=== PATIENT | male | born 1990 | race American Indian/Alaskan Native ===

== ENCOUNTER 2017-11-16 09:38 | Emergency (ER) | payer OTHER ==
[2017-11-16 10:22] VITALS: BP 132/71
--- NOTE | 2017-11-16 10:53 | Emergency Department Report ---
Minor Respiratory - HPI Chief Complaint: Sore Throat Stated Complaint: SORE THROAT Time Seen by Provider: 11/16/17 10:44 Duration: 1 Day Pain Location: Throat Severity: mild Minor Respiratory: Yes Sore Throat, Yes Able to Tolerate Fluids, No Rhinorrhea, No Ear Pain, No Cough, No Sick Contacts, No Hemoptysis, No Chest Pain, No Shortness of Breath, No Fever ED Review of Systems ROS: Stated complaint: SORE THROAT Other details as noted in HPI Comment: All other systems reviewed and negative ENT: throat pain ED Past Medical Hx - Past Medical History Previous Medical History?: No - Surgical History Past Surgical History?: No - Social History Smoking Status: Current Every Day Smoker Substance Use Type: None - Medications Home Medications: Home Medications Medication Instructions Recorded Confirmed Last Taken Type Amoxicillin 500 mg PO BID #20 capsule 11/16/17 Unknown Rx methylPREDNISolone [Medrol] 4 mg PO DAILY #1 tab.ds.pk 11/16/17 Unknown Rx Minor Respiratory Exam - Exam General: Vital signs noted. No distress. Alert and acting appropriately. HEENT: Yes Pharyngeal Erythema, Yes Moist Mucous Membranes, No Pharyngeal Exudates, No Rhinorrhea, No Conjuctival Injection, No Frontal Tenderness, No Maxillary Tenderness Ear: Neither TM Bulge, Neither TM Erythema, Neither EAC Pain, Neither EAC Discharge Neck: Yes Supple, No Adenopathy Lungs: Yes Good Air Exchange, No Wheezes, No Ronchi, No Stridor, No Cough, No Labored Respirations, No Retractions, No Use of Accessory Muscles, No Other Abnormal Lung Sounds Heart: Yes Regular, No Murmur Abdomen: Yes Normal Bowel Sounds, No Tenderness, No Peritoneal Signs Skin: No Rash, No Edema Neurologic: Alert and oriented, no deficits. Musculoskeletal: Unremarkable. ED Course Vital Signs 11/16/17 10:21 Temperature 98.6 F Pulse Rate 78 Respiratory 18 Rate Blood Pressure 132/71 O2 Sat by Pulse 100 Oximetry - Reevaluation(s) Reevaluation #1: 11/16/17 11:13 VSS NAD AMBULATORY TAKING PO NO HOARSENESS CC SORE THROAT UVULA BOGGY RED NO EXUDATES NO FEVER MEDICATED DC HOME W DC POC ED Medical Decision Making - Medical Decision Making SEE NOTE - Differential Diagnosis URTI Critical care attestation.: If time is entered above; I have spent that time in minutes in the direct care of this critically ill patient, excluding procedure time. ED Disposition Clinical Impression: Acute pharyngitis Disposition: DC-01 TO HOME OR SELFCARE Is pt being admited?: No Does the pt Need Aspirin: No Condition: Stable Instructions: Pharyngitis (ED) Additional Instructions: REST HYDRATE WELL MED ORDERED FOLLOW UP PCP IN 72 HOURS FOR RECHECK Referrals: PRIMARY CARE, [Primary Care Provider] - 3-5 Days STELLA MCCRACKEN MD [Staff Physician] - 3-5 Days Time of Disposition: 11:11
[2017-11-16] MEDS ORDERED: TRIMOX PO ONE (11:03)
[2017-11-16] MEDS ORDERED: DECADRON IM ONE (11:04)
== END 2017-11-16 11:29 | disposition home or self-care (01) ==
LOC: ED 09:38
DX: J02.9 Acute pharyngitis, unspecified (principal); F17.200 Nicotine dependence, unspecified, uncomplicated
CPT/HCPCS: 96372; 99282; J1100

== ENCOUNTER 2018-01-18 07:19 | Emergency (ER) | payer SELFPAY ==
[2018-01-18 08:05] LABS: Basophils % (Auto) 0.5 % (0.0-1.8); Eosinophils # (Auto) 0.3 K/mm3 (0.0-0.4); Eosinophils % (Auto) 3.8 % (0.0-4.3); Hematocrit 49.1 % (35.5-45.6); Hemoglobin 16.5 gm/dl (11.8-15.2); Lymphocytes # (Auto) 1.7 K/mm3 (1.2-5.4); Lymphocytes % (Auto) 24.9 % (13.4-35.0); Mean Corpuscular HGB Conc 34 % (32-34); Mean Corpuscular Hemoglobin 30 pg (28-32); Mean Corpuscular Volume 89 fl (84-94); Monocytes # (Auto) 0.5 K/mm3 (0.0-0.8); Monocytes % (Auto) 7.7 % (0.0-7.3); Platelet Count 199 K/mm3 (140-440); Red Blood Count 5.52 M/mm3 (3.65-5.03); Red Cell Distribution Width 13.8 % (13.2-15.2)
[2018-01-18 08:19] LABS: BUN/Creatinine Ratio 11; Blood Urea Nitrogen 9 mg/dL (9-20); Calcium 9.4 mg/dL (8.4-10.2); Hemolysis Index 7
[2018-01-18] MEDS ORDERED: MOTRIN PO ONE (12:08)
--- NOTE | 2018-01-18 12:17 | Emergency Department Report ---
ED Chest Pain HPI - General Chief Complaint: Chest Pain Stated Complaint: FLU LIKE SYMPTOMS Time Seen by Provider: 01/18/18 12:02 Source: patient Mode of arrival: Ambulatory Limitations: No Limitations - History of Present Illness Initial Comments: Patient is a 27-year-old Georgian male who is presenting with chest pain and sinus tenderness. Patient states woke up this morning and was having discomfort when he breathes. Patient denies any cough. Patient states that as a soreness in the upper chest and he also has soreness in the maxillary sinus region. Patient states he has difficulty breathing out of both nostrils. Patient also was nauseous this morning and vomited once. Patient denies any pleuritic component or exertional component to this chest pain. Patient's states he has had no measurable fever diarrhea abdominal pain headache sore throat at this time. - Related Data Previous Rx's Medication Instructions Recorded Last Taken Type Amoxicillin 500 mg PO BID #20 capsule 11/16/17 Unknown Rx methylPREDNISolone [Medrol] 4 mg PO DAILY #1 tab.ds.pk 11/16/17 Unknown Rx Amoxicillin/Potassium Clav 1 each PO BID #14 tablet 01/18/18 Unknown Rx [Augmentin 875-125 Tablet] Hydrochlorothiazide [HCTZ] 12.5 mg PO QDAY #30 capsule 01/18/18 Unknown Rx predniSONE [Deltasone] 20 mg PO QDAY #5 tab 01/18/18 Unknown Rx Allergies Allergy/AdvReac Type Severity Reaction Status Date / Time No Known Allergies Allergy Verified 11/16/17 10:20 Heart Score - HEART Score History: Slightly suspicious EKG: Normal Age: < 45 Risk factors: No known risk factors Troponin: < normal limit HEART Score: 0 ED Review of Systems ROS: Stated complaint: FLU LIKE SYMPTOMS Other details as noted in HPI Comment: All other systems reviewed and negative ED Past Medical Hx - Past Medical History Previous Medical History?: No - Surgical History Past Surgical History?: No - Social History Smoking Status: Current Every Day Smoker - Medications Home Medications: Home Medications Medication Instructions Recorded Confirmed Last Taken Type Amoxicillin 500 mg PO BID #20 capsule 11/16/17 Unknown Rx methylPREDNISolone [Medrol] 4 mg PO DAILY #1 tab.ds.pk 11/16/17 Unknown Rx Amoxicillin/Potassium Clav 1 each PO BID #14 tablet 01/18/18 Unknown Rx [Augmentin 875-125 Tablet] Hydrochlorothiazide [HCTZ] 12.5 mg PO QDAY #30 capsule 01/18/18 Unknown Rx predniSONE [Deltasone] 20 mg PO QDAY #5 tab 01/18/18 Unknown Rx ED Physical Exam - General Limitations: No Limitations ED Course Vital Signs 01/18/18 01/18/18 07:26 12:09 Temperature 97.9 F Pulse Rate 102 H Respiratory 16 16 Rate Blood Pressure 163/98 O2 Sat by Pulse 99 Oximetry ED Medical Decision Making - Lab Data Result diagrams: 01/18/18 07:44 01/18/18 07:44 - EKG Data -: EKG Interpreted by Me EKG shows normal: sinus rhythm, axis, intervals, QRS complexes, ST-T waves Rate: normal - EKG Data Interpretation: normal EKG - Radiology Data Radiology results: image reviewed interpreted by me: No acute process - Medical Decision Making Patient is a 27 year old male who is presenting with sinus tenderness in the maxillary sinus region. Patient's lungs are clear EKG was normal chest x-ray was read as normal as well. Pat will be discharged home with early treatment for acute sinusitis. Patient will be also started on a low-dose blood pressure medicine. Patient blood pressure was elevated hypertensive range. She states that hypertension does run in his family. Critical care attestation.: If time is entered above; I have spent that time in minutes in the direct care of this critically ill patient, excluding procedure time. ED Disposition Clinical Impression: Hypertension Qualifiers: Hypertension type: unspecified Qualified Code(s): I10 - Essential (primary) hypertension Sinusitis Qualifiers: Sinusitis location: other Chronicity: acute Recurrence: non-recurrent Qualified Code(s): J01.80 - Other acute sinusitis Disposition: DC-01 TO HOME OR SELFCARE Is pt being admited?: No Does the pt Need Aspirin: No Condition: Stable Instructions: Hypertension (ED), Sinusitis (ED) Prescriptions: Amoxicillin/Potassium Clav [Augmentin 875-125 Tablet] 1 each PO BID #14 tablet Hydrochlorothiazide [HCTZ] 12.5 mg PO QDAY #30 capsule predniSONE [Deltasone] 20 mg PO QDAY #5 tab Referrals: PRIMARY CARE, [Primary Care Provider] - 3-5 Days
--- NOTE | 2018-01-18 12:50 | XRay Report ---
ROUTINE CHEST, TWO VIEWS: HISTORY: Cough. The trachea, heart, mediastinal contour, lung cannon and bony thorax are unremarkable. IMPRESSION: Unremarkable chest x-ray.
[2018-01-18 12:53] VITALS: BP 127/80
== END 2018-01-18 12:54 | disposition home or self-care (01) ==
LOC: ED 07:19
DX: J01.80 Other acute sinusitis (principal); I10 Essential (primary) hypertension; F17.200 Nicotine dependence, unspecified, uncomplicated
CPT/HCPCS: 36415; 71046; 80048; 84484; 85025; 93005; 93010; 99284

== ENCOUNTER 2021-05-05 22:43 | Emergency (ER) | payer SELFPAY ==
[2021-05-05 23:45] VITALS: BP 122/70
[2021-05-05] MEDS ORDERED: FAMOTIDINE 20 MG TAB PO ONE (23:52)
[2021-05-05] MEDS ORDERED: ASPIRIN 325 MG TAB PO ONE (23:52)
[2021-05-05] MEDS ORDERED: ONDANSETRON 4 MG ODT TAB PO ONE (23:52)
[2021-05-05] MEDS ORDERED: ALUM-MAG HYDROXIDE-SIMETHICONE 200-200-20MG/5ML ORAL LIQD 30 ML PO ONE (23:52)
[2021-05-05] MEDS ORDERED: LIDOCAINE VISCOUS 2% 15 ML ORAL LIQD PO ONE (23:52)
--- NOTE | 2021-05-05 23:55 | Event Note ---
ED Screening Note Date of service: 05/05/21 Time: 23:54 ED Screening Note: Patient is a 30-year-old -Qat[place] male with no past medical history presents to the ED with complaint of acute onset persistent epigastric pain that radiates to the left chest and substernal area with pressure, nausea and vomiting after he swallowed a piece of meat and suspects that the food bolus may have gotten stuck in his distal esophagus. Patient states that he has tried to drink a lot of fluids but continues to have nausea and vomiting. Patient denies dizziness, syncope, shortness of breath, palpitations, sore throat, hemoptysis, hematemesis, back pain or headache. This initial assessment/diagnostic orders/clinical plan/treatment(s) is/are subject to change based on patients health status, clinical progression and re- assessment by fellow clinical providers in the ED. Further treatment and workup at subsequent clinical providers discretion. Patient/guardian urged not to elope from the ED as their condition may be serious if not clinically assessed and managed. Initial orders include: CBC, CMP, EKG, abdomen series with chest x-ray, troponin, Zofran, GI cocktail
--- NOTE | 2021-05-06 00:25 | XRay Report ---
ABDOMEN 3 VIEW(S) INDICATION / CLINICAL INFORMATION: Epigastric pain : food bolus stuck in esophagus. COMPARISON: None available. FINDINGS: TUBES / LINES: None. BOWEL GAS PATTERN: No significant abnormality. FREE AIR / EXTRALUMINAL GAS: None seen. ADDITIONAL FINDINGS: No significant additional findings. CHEST: Visualized chest shows no significant abnormality. IMPRESSION: 1. No significant abnormality. Signer Name: Andrews Garcia MD Signed: 05/06/2021 12:21 AM Workstation Name: [id number]
[2021-05-06 00:37] LABS: Basophils % (Auto) 0.1 % (0.0-1.8); Eosinophils # (Auto) 0.1 K/mm3 (0.0-0.4); Eosinophils % (Auto) 0.8 % (0.0-4.3); Hematocrit 42.6 % (35.5-45.6); Hemoglobin 14.6 gm/dl (11.8-15.2); Lymphocytes % (Auto) 17.2 % (13.4-35.0); Mean Corpuscular HGB Conc 34 % (32-34); Mean Corpuscular Volume 89 fl (84-94); Monocytes # (Auto) 0.8 K/mm3 (0.0-0.8); Monocytes % (Auto) 6.5 % (0.0-7.3); Platelet Count 214 K/mm3 (140-440); Red Blood Count 4.79 M/mm3 (3.65-5.03); Red Cell Distribution Width 13.6 % (13.2-15.2)
[2021-05-06 00:56] LABS: Alanine Aminotransferase 35 units/L (7-56); Albumin 4.5 g/dL (3.9-5); BUN/Creatinine Ratio 12; Blood Urea Nitrogen 12 mg/dL (9-20); Calcium 9.2 mg/dL (8.4-10.2); Hemolysis Index 4
--- NOTE | 2021-05-06 03:07 | Emergency Department Report ---
ED Abdominal Pain HPI - General Chief Complaint: Abdominal Pain Stated Complaint: LIZ Source: patient Mode of arrival: Ambulatory Limitations: No Limitations - History of Present Illness Initial Comments: Patient is a 30-year-old -Uz[place] male with no past medical history presents to the ED with complaint of acute onset persistent epigastric pain that radiates to the left chest and substernal area with pressure, nausea and vomiting after he swallowed a piece of meat and suspects that the food bolus may have gotten stuck in his distal esophagus for the last 1 hour. Patient states that he has tried to drink a lot of fluids but continues to have nausea and vomiting. Patient denies dizziness, syncope, shortness of breath, palpitations, sore throat, hemoptysis, hematemesis, back pain or headache. MD Complaint: abdominal pain, other (nausea and vomiting) -: Sudden, hour(s) (1) Location: epigastric Radiation: epigastric, other (substernal chest ) Migration to: no migration Severity: severe Severity scale (0 -10): 7 Quality: aching, sharp Consistency: constant Improves With: nothing Worsens With: vomiting Context: other (suspected food bolus) Associated Symptoms: denies other symptoms, vomiting, anorexia. denies: nausea, fever, chills, dysuria, hematochezia, melena, syncope, other - Related Data Previous Rx's Medication Instructions Recorded Last Taken Type Amoxicillin 500 mg PO BID #20 capsule 11/16/17 Unknown Rx methylPREDNISolone [Medrol] 4 mg PO DAILY #1 tab.ds.pk 11/16/17 Unknown Rx Amoxicillin/Potassium Clav 1 each PO BID #14 tablet 01/18/18 Unknown Rx [Augmentin 875-125 Tablet] hydroCHLOROthiazide [HCTZ] 12.5 mg PO QDAY #30 capsule 01/18/18 Unknown Rx predniSONE [Deltasone] 20 mg PO QDAY #5 tab 01/18/18 Unknown Rx Dicyclomine [Bentyl] 20 mg PO Q6H PRN #24 tablet 05/06/21 Unknown Rx Esomeprazole Magnesium [NexIUM] 40 mg PO QDAY #30 capsule. 05/06/21 Unknown Rx Famotidine [Pepcid] 20 mg PO BID #60 tablet 05/06/21 Unknown Rx Ondansetron [Zofran Odt] 4 mg PO Q6HR PRN #20 tab.rapdis 05/06/21 Unknown Rx Allergies Allergy/AdvReac Type Severity Reaction Status Date / Time No Known Allergies Allergy Verified 11/16/17 10:20 ED Review of Systems ROS: Stated complaint: LIZ Other details as noted in HPI Constitutional: denies: chills, fever Eyes: denies: eye pain, eye discharge, vision change ENT: denies: ear pain, throat pain Respiratory: denies: cough, shortness of breath, wheezing Cardiovascular: denies: chest pain, palpitations Endocrine: no symptoms reported Gastrointestinal: abdominal pain (epigastric pain), nausea, vomiting. denies: diarrhea Genitourinary: denies: urgency, dysuria Musculoskeletal: denies: back pain, joint swelling, arthralgia Skin: denies: rash, lesions Neurological: denies: headache, weakness, paresthesias Psychiatric: denies: anxiety, depression Hematological/Lymphatic: denies: easy bleeding, easy bruising ED Past Medical Hx - Past Medical History Previous Medical History?: No - Surgical History Past Surgical History?: No - Social History Smoking Status: Unknown if ever smoked Substance Use Type: None - Medications Home Medications: Home Medications Medication Instructions Recorded Confirmed Last Taken Type Amoxicillin 500 mg PO BID #20 capsule 11/16/17 Unknown Rx methylPREDNISolone [Medrol] 4 mg PO DAILY #1 tab.ds.pk 11/16/17 Unknown Rx Amoxicillin/Potassium Clav 1 each PO BID #14 tablet 01/18/18 Unknown Rx [Augmentin 875-125 Tablet] hydroCHLOROthiazide [HCTZ] 12.5 mg PO QDAY #30 capsule 01/18/18 Unknown Rx predniSONE [Deltasone] 20 mg PO QDAY #5 tab 01/18/18 Unknown Rx Dicyclomine [Bentyl] 20 mg PO Q6H PRN #24 tablet 05/06/21 Unknown Rx Esomeprazole Magnesium [NexIUM] 40 mg PO QDAY #30 capsule. 05/06/21 Unknown Rx Famotidine [Pepcid] 20 mg PO BID #60 tablet 05/06/21 Unknown Rx Ondansetron [Zofran Odt] 4 mg PO Q6HR PRN #20 tab.rapdis 05/06/21 Unknown Rx ED Physical Exam - General Limitations: No Limitations General appearance: alert, in no apparent distress - Head Head exam: Present: atraumatic, normocephalic, normal inspection - Eye Eye exam: Present: normal appearance, PERRL, EOMI Pupils: Present: normal accommodation - ENT ENT exam: Present: normal exam, normal orophraynx, mucous membranes moist, TM's normal bilaterally, normal external ear exam - Neck Neck exam: Present: normal inspection, full ROM - Respiratory Respiratory exam: Present: normal lung sounds bilaterally. Absent: respiratory distress, wheezes, rhonchi, chest wall tenderness, decreased breath sounds - Cardiovascular Cardiovascular Exam: Present: normal rhythm, tachycardia, normal heart sounds. Absent: systolic murmur, diastolic murmur, rubs, gallop - GI/Abdominal GI/Abdominal exam: Present: soft, tenderness (Palpable mild epigastric tenderness), normal bowel sounds. Absent: guarding, rebound, hyperactive bowel sounds, hypoactive bowel sounds - Extremities Exam Extremities exam: Present: normal inspection, full ROM, normal capillary refill - Back Exam Back exam: Present: normal inspection, full ROM. Absent: tenderness, CVA tenderness (R), CVA tenderness (L), paraspinal tenderness - Neurological Exam Neurological exam: Present: alert, oriented X3, CN II-XII intact, normal gait, reflexes normal - Psychiatric Psychiatric exam: Present: normal affect, normal mood, anxious - Skin Skin exam: Present: warm, dry, intact, normal color. Absent: rash ED Course Vital Signs 05/05/21 23:40 Temperature 98.6 F Pulse Rate 106 H Respiratory 18 Rate Blood Pressure 122/70 O2 Sat by Pulse 93 Oximetry ED Medical Decision Making - Lab Data Result diagrams: 05/06/21 00:16 05/06/21 00:16 - Radiology Data Radiology results: report reviewed, image reviewed [address] [address] XRay Report Signed Patient: MATHEW BROWN MR#: [id number] : 1990 Acct:[id number] Age/Sex: 30 / M ADM Date: 05/05/21 Loc: ED Attending Dr: Ordering Physician: HEATHER MCBRIDE Date of Service: 05/05/21 Procedure(s): XR abd series w cxr 1V Accession Number(s): [id number] cc: HEATHER MCBRIDE Fluoro Time In Minutes: ABDOMEN 3 VIEW(S) INDICATION / CLINICAL INFORMATION: Epigastric pain : food bolus stuck in esophagus. COMPARISON: None available. FINDINGS: TUBES / LINES: None. BOWEL GAS PATTERN: No significant abnormality. FREE AIR / EXTRALUMINAL GAS: None seen. ADDITIONAL FINDINGS: No significant additional findings. CHEST: Visualized chest shows no significant abnormality. IMPRESSION: 1. No significant abnormality. Signer Name: Andrews Dumont MD Signed: 05/06/2021 12:21 AM Workstation Name: [id number] Transcribed By: DEEJAY Dictated By: DAVID DUMONT MD Electronically Authenticated By: DAVID DUMONT MD Signed Date/Time: 05/06/21 002 DD/ TD/TT: - Medical Decision Making This is a 30-year-old -Uz[place] male with no past medical history presents to the ED with complaint of acute onset persistent epigastric pain that radiates to the left chest and substernal area with pressure, nausea and vomiting after he swallowed a piece of meat and suspects that the food bolus may have gotten stuck in his distal esophagus. Patient states that he has tried to drink a lot of fluids but continues to have nausea and vomiting. In the ED, patient is alert and oriented x3 and is not in any distress but appears anxious and tachycardic but afebrile in triage. Lab test results were reviewed and are all nonactionable except for mild leukocytosis of 11,600. Abdomen KUB and chest x-ray showed no acute abnormalities. On reevaluation, patient's nausea and vomiting resolved in the ED and patient's pain also resolved. Patient however eloped from the ED prior to receiving his medications and his vital signs being rechecked. - Differential Diagnosis GERD; Gastritis; Gastroenteritis; ACS Critical care attestation.: If time is entered above; I have spent that time in minutes in the direct care of this critically ill patient, excluding procedure time. ED Disposition Clinical Impression: Acute epigastric pain, Nausea and vomiting in adult patient GERD (gastroesophageal reflux disease) Qualifiers: Esophagitis presence: esophagitis presence not specified Qualified Code(s): K21.9 - Gastro-esophageal reflux disease without esophagitis Disposition: ELOPED Is pt being admited?: No Does the pt Need Aspirin: No Condition: Undetermined Instructions: Abdominal Pain, Adult, [id number], Gastroesophageal Reflux Disease, Adult, [id number], Nausea and Vomiting, Adult, [id number] Additional Instructions: All lab test results were reviewed and are all nonactionable. The imaging report showed no acute abnormalities. Your symptoms are likely due to GERD complications and inflammation of the stomach wall as a result of intractable nausea and vomiting. Therefore take medications with food, drink plenty of fluids and follow-up with your primary care physician in 3 to 5 days for reevaluation. Return to the ED immediately if symptoms get worse. Prescriptions: Dicyclomine [Bentyl] 20 mg PO Q6H PRN #24 tablet PRN Reason: abdominal pain Esomeprazole Magnesium [NexIUM] 40 mg PO QDAY #30 capsule. Famotidine [Pepcid] 20 mg PO BID #60 tablet Ondansetron [Zofran Odt] 4 mg PO Q6HR PRN #20 tab.rapdis PRN Reason: Nausea Referrals: [facility] [Provider Group] - 3-5 Days Forms: Work/School Release Form(ED) Time of Disposition: 03:09 Print Language: MICRONESIAN
--- NOTE | 2021-05-08 19:01 | Electrocardiograph Report ---
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
== END 2021-05-06 03:11 | disposition left against medical advice (07) ==
LOC: ED 22:43
DX: K21.9 Gastro-esophageal reflux disease without esophagitis (principal); R11.2 Nausea with vomiting, unspecified; Z79.899 Other long term (current) drug therapy
CPT/HCPCS: 36415; 74022; 80053; 84484; 85025; 93005; 99283